=== PATIENT | male | born 1955 | race Two or more races ===

== ENCOUNTER 2021-09-01 14:56 | Emergency (ER) | payer OTHER ==
[~2021-09-01] VITALS: Ht 167.6 cm; Wt 63.5 kg
[2021-09-01] MEDS ORDERED: CLOTRIMAZOLE-BE15 GM TOP (17:57)
== END 2021-09-01 18:10 | disposition home or self-care (01) ==
LOC: ER 14:56
DX: R21 Rash and other nonspecific skin eruption (principal)

== ENCOUNTER 2022-05-24 15:14 | Emergency (ER) | payer OTHER ==
[~2022-05-24] VITALS: Ht 167.6 cm; Wt 65.8 kg
[~2022-05-24 15:14] MED LIST: CLOTRIMAZOLE-BE15 GM TOP
== END 2022-05-24 18:49 | disposition home or self-care (01) ==
LOC: ER 15:14
DX: K13.3 Hairy leukoplakia (principal); Z88.6 Allergy status to analgesic agent